=== PATIENT | female | born 1995 | race Caucasian/White ===

== ENCOUNTER 2016-12-16 00:42 | Emergency (ER) | payer OTHER ==
[~2016-12-16] VITALS: Ht 157.5 cm; Wt 71.0 kg
[~2016-12-16 00:42] MED LIST: CEPH-443 PO; LEVO50TA74 PO; OMEP20CA16 PO
[2016-12-16 00:57] VITALS: Ht 157.5 cm; Wt 71.0 kg
[2016-12-16] MEDS ORDERED: PRED50TA PO (02:54)
[2016-12-16] MEDS ORDERED: BEN50 PO (02:54)
[2016-12-16] MEDS ORDERED: DIPHENHYDRAMINE 50 MG INJ IM ONE (03:00)
--- NOTE | 2016-12-16 03:11 | ERD ---
ER Documentation Chief Complaint Date/Time DATE: 12/16/16 TIME: 03:08 Chief Complaint hives like rashes since 1 hour ago HPI 21-year-old female presents to emergency department for complaints of rash all over the body and itching after taking Tylenol with Codeine at home. Patient and denies any lip swelling, tongue swelling or stridor. Patient did not take any medications of symptoms. Patient's rash got better but continues to be itching. Patient denies any family members with the same type of rash. ROS All systems reviewed and are negative except as per history of present illness. Medications Home Meds Active Scripts Prednisone* (Prednisone*) 50 Mg Tablet, 50 MG PO DAILY, #5 TAB Prov:SELENA KENNEDY NP 12/16/16 Diphenhydramine Hcl* (Benadryl*) 50 Mg Cap, 50 MG PO Q6H Y for ITCHING/RASH, # 30 CAP Prov:SELENA KENNEDY NP 12/16/16 Cephalexin* (Keflex*) 500 Mg Capsule, 500 MG PO BID for 5 Days, CAP Prov:JENNIFER HERMAN PA-C 08/14/16 Reported Medications Omeprazole* (Omeprazole*) 20 Mg Capsule.dr, 20 MG PO DAILY 12/28/11 Levothyroxine Sodium* (Levothyroxine Sodium*) 50 Mcg Tablet, 50 MCG PO DAILY 12/28/11 Allergies Allergies: Coded Allergies: Acetaminophen (Verified Allergy, 12/28/11) RASH Codeine (Verified Allergy, 12/28/11) RASH Hydrocodone (Verified Allergy, 12/28/11) RASH naproxen (Verified Allergy, 12/28/11) RASH PMhx/Soc History of Surgery: Yes (EGD) Anesthesia Reaction: No Hx Neurological Disorder: Yes (EPILEPTIC SX 2007) Hx Respiratory Disorders: Yes (ASTHMA SINCE 2007) Hx Cardiac Disorders: No Hx Psychiatric Problems: Yes (ANXIETY/NERVOUS) Hx Miscellaneous Medical Probl: No Hx Alcohol Use: No Hx Substance Use: No Hx Tobacco Use: No Smoking Status: Never smoker FmHx Family History: No coronary disease, No diabetes, No other Physical Exam Vitals Vital Signs Date Time Temp Pulse Resp B/P Pulse Ox O2 Delivery O2 Flow Rate FiO2 12/16/16 00:57 97.8 101 20 133/80 100 Physical Exam GENERAL: The patient is well developed and appropriate for usual state of health, in no apparent distress. CHEST: Clear to auscultation bilaterally. There are no rales, wheezes or rhonchi. HEART: Regular rate and rhythm. No murmurs, clicks, rubs or gallops. No S3 or S4. ABDOMEN: Soft, nontender and nondistended. Good bowel sounds. No rebound or guarding. No gross peritonitis. No gross organomegaly or masses. No Whitman sign or McBurney point tenderness. BACK: No midline or flank tenderness. EXTREMITIES: Equal pulses bilaterally. There is no peripheral clubbing, cyanosis or edema. No focal swelling or erythema. Full range of motion. Grossly neurovascularly intact. NEURO: Alert and oriented. Cranial nerves 2-12 intact. Motor strength in all 4 extremities with 5/5 strength. Sensation grossly intact. Normal speech and gait. SKIN: Maculopapular rash noted all over the body. There is no apparent ecchymosis or petechia. The skin is warm and dry. HEMATOLOGIC AND LYMPHATIC: There is no evidence of excessive bruising or lymphedema. No gross cervical, axillary, or inguinal lymphadenopathy. Results 24 hrs Current Medications Medications (Trade) Dose Ordered Sig/Rigo Route PRN Reason Start Time Stop Time Status Last Admin Dose Admin Diphenhydramine HCl (Benadryl) 50 mg ONCE ONCE IM 12/16/16 03:00 12/16/16 03:01 DC 12/16/16 02:48 Benadryl was given here in emergency department. Itching improved afterwards. Procedures/MDM Medical decision making: Patient's rash all over the body consistent with urticaria. Possible allergic reaction. No symptoms of anaphylactic shock. No symptoms of coagulopathies. No symptoms of any contagious rash at this time. Patient was given for Benadryl, prednisone, is advised to avoid scratching, and avoid Tylenol with Codeine. Patient was advised also to avoid common allergens. Patient is advised to return to emergency department for any worsening symptoms. Follow-up with primary care doctor in 2-3 days for reevaluation of symptoms Departure Diagnosis: Primary Impression: Urticaria Condition: Stable Patient Instructions: SELENA Cabello NP Dec 16, 2016 03:11
== END 2016-12-16 03:32 | disposition home or self-care (01) ==
LOC: FTE 00:42
DX: L50.9 Urticaria, unspecified (principal); J45.909 Unspecified asthma, uncomplicated
CPT/HCPCS: 96372; J1200; Z7502

== ENCOUNTER 2018-08-08 00:54 | Emergency (ER) | END 2018-08-08 04:06 | disposition home or self-care (01) ==